=== PATIENT | female | born 1950 | race Caucasian/White ===

== ENCOUNTER → 2020-09-19 11:14 | Outpatient (CLI) | payer OTHER, SELFPAY ==
[2020-09-19 11:28] LABS: Bacteria Urine None Seen; RBC Urine None Seen (0-5/HPF); WBC Urine None Seen (0-5/HPF)
[2020-09-19 12:56] LABS: Add Manual Diff / Slide Review NO; Basophils Absolute Auto 0 /uL (0-100); Basophils Percent Auto 0.8 % (0-2); Eosinophils Absolute Auto 100 /uL (0-450); Eosinophils Percent Auto 2.3 % (2-4); Hematocrit 38.4 % (36-46); Hemoglobin 13.1 g/dL (12.0-16.0); Lymphocytes Absolute Auto 2100 /uL (1100-4500); Mean Corpuscular HGB Conc 34.1 % (30-36); Mean Corpuscular Hemoglobin 32.6 PG (26-34); Mean Corpuscular Volume 95.6 fL (80-100); Monocytes Absolute Auto 500 /uL (0-900); Monocytes Percent Auto 9.2 % (3-14); Neutrophils Absolute Auto 2800 /uL (1500-7000); Neutrophils Percent Auto 49.7 % (50-75); Platelet Count 271 X10^3/uL (150-400); Red Blood Cell Count 4.02 X10^6/uL (4.0-5.2); Red Cell Distribution Width 13.6 % (11.6-14.8); White Blood Cell Count 5.6 X10^3/uL (4.5-11.0)
[2020-09-19 13:05] LABS: Appearance Urine UA CLEAR; Bilirubin Urine UA NEGATIVE (NEGATIVE); Color Urine UA YELLOW; Glucose Urine UA NEGATIVE (Negative); Ketones Urine UA NEGATIVE (NEGATIVE); Leukocyte Esterase Urine UA NEGATIVE (NEGATIVE); Nitrite Urine UA NEGATIVE (Negative); Occult Blood Urine UA NEGATIVE (Negative); Protein Urine UA NEGATIVE (Negative); Urobilinogen Urine UA 0.2 E.U./dL (0.2)
[2020-09-19 13:34] LABS: Blood Urea Nitrogen 20 mg/dL (7-17); Calcium 10.3 mg/dL (8.4-10.2); Carbon Dioxide 26 mmol/L (22-32); Chloride 104 mmol/L (98-107); Estimated Glomerular Filt Rate 48.6 mL/min (>60); Glucose 91 mg/dL (80-110); HEMOLYSIS < 15 (0-50); Potassium 4.6 mmol/L (3.4-5.1); Sodium 139 mmol/L (137-145)
[2020-09-19 13:44] LABS: Culture Indicated Urine Cult Not Indicated; Urine Comments Microscopic Normal
== END ==
PROVIDERS: Family Provider Internal Medicine; PCP Internal Medicine; Referring Provider Orthopaedic Surgery; Visit Provider Orthopaedic Surgery
DX: Z01.818 Encounter for other preprocedural examination (principal); R73.9 Hyperglycemia, unspecified; Z01.812 Encounter for preprocedural laboratory examination; N39.0 Urinary tract infection, site not specified
CPT/HCPCS: 36415; 80048; 81001; 83036; 85025; 93005

== ENCOUNTER → 2020-10-10 11:21 | Outpatient (CLI) | payer OTHER, SELFPAY ==
[2020-10-10 14:22] LABS: COVID19 -Nasal RAPID Negative (Negative)
== END ==
PROVIDERS: Family Provider Internal Medicine; PCP Internal Medicine; Visit Provider Nurse Practitioner
DX: Z01.812 Encounter for preprocedural laboratory examination (principal); Z20.822 Contact with and (suspected) exposure to COVID-19
CPT/HCPCS: 87635; C9803

== ENCOUNTER 2020-10-12 09:24 | Observation (INO) | payer OTHER, SELFPAY ==
[2020-10-04 09:36] VITALS: BMI 25.0
[2020-10-11] VITALS (13 sets, daily range): BP systolic 113–154; BP diastolic 59–79; PULSE 62–99; RESP 14–20; TEMP 35.5–36.8; O2SAT 93–99; BMI 25.0
[2020-10-11] MEDS: LACTATED RINGERS 1,000 ML 42 ML IV ×2 (06:51→09:07)
[2020-10-11] MEDS: ACETAMINOPHEN 325 MG TABLET 975 MG PO (06:51)
[2020-10-11] MEDS: PREGABALIN 75 MG CAPSULE PO ×2 (06:51→07:06)
[2020-10-11] MEDS: VANCOMYCIN 1,000 MG/200 ML PIGGYBACK 200 MG IV (06:52)
--- NOTE | 2020-10-11 07:35 | PM.PREOP ---
Pre-operative Note COVID-19 COVID-19 status: Negative Interval Note History & Physical reviewed/Exam performed by Physician: Yes Changes to H&P: No
--- NOTE | 2020-10-11 07:36 | P.OP_ITS ---
Operative Date/Time/Diagnoses Date of procedure: 10/11/20 Time of procedure: 08:00 Pre-op diagnosis: Left hip OA Post-op diagnosis: same Procedure & Clinicians Procedure: Left total hip arthroplasty anterior approach Same procedure as scheduled: Yes Indications: The patient has had progressively worsening left hip pain with radiographic changes consistent with arthritis. Non-operative management has failed and the patient has requested total hip replacement. The risks, benefits and alternatives to surgery were discussed with the patient prior to proceeding. Risks discussed included, but were not limited to, failure to relieve pain, leg length discrepancy, dislocation, stiffness, infection, nerve damage, deep venous thrombosis, pulmonary embolism, stroke, coma, heart attack, permanent paralysis and , as well as the potential need for eventual revision of the prosthetic. Surgeon: Kenya Zhu Application Assistant: Aleida Michael Anesthesia Type: General and Spinal Operative Notes Findings: severe left hip osteoarthritis, good stability Closure Type: primary Specimen(s): none sent Prosthetic devices, grafts, tissues, transplants, or devices: [employer] anthology A fit size 4 femur, 52 mm cup, 36 +0 Oxinium femoral head,one 6.5 mm screw Estimated Blood Loss (mL): 250 Blood products transfused: none Procedure in detail: The patient was brought to the operating room. Patient was carefully positioned in the supine position. Time-out was performed and antibiotics were given. Anesthesia was induced. She was positioned in the on the table in order to allow hyperextension of the hip. The left lower extremity was prepped and draped in a standard sterile fashion. An anterior left hip incision was made 1 fingerbreadth lateral to the anterior superior iliac spine and extended distally towards the greater trochanter. Dissection was carried out through skin and subcutaneous tissues. Superficial hemostasis was achieved. The fascia over the tensor fascia beatriz was defined and incised with a knife. Two Allis clamps were used to grasp the fascia. Tensor fascia beatriz was retracted laterally. A gelpi retractor was placed. Dissection was carried out down along the neck. The circumflex vessels were carefully identified and cauterized with the Aqua Mantis. There was good visualization of the femoral neck. A Cobra was placed superior to the neck and the gluteus fibers were carefully stripped from that superior aspect of the capsule. A 2nd retractor was placed along the inferior aspect of the neck. The rectus insertion along the capsule was partially released. A 3rd retractor that was then gently placed over the rim of the acetabulum under the rectus. Capsule was carefully incised and released from the intertrochanteric line circumferentially superior to the mid sagittal line and inferiorly to the mid sagittal line until the lesser trochanter was palpable. A tag stitch was placed both in the superior and inferior limb of the capsular insertion. Along the acetabulum capsule was also released up to the mid sagittal 12:00 position. A portion of the labrum was resected. A saw was used to perform an osteotomy at the level of the intertrochanteric line and the junction of the superior femoral neck leaving approximately 1 finger breath of residual inferior neck above the lesser trochanter. A 2nd cut was made along the femoral neck at the base of the head and a napkin ring of neck was removed. Corkscrew was placed in the femoral head and the head was removed without difficulty. Retractors were then repositioned around the acetabulum. Residual labrum was resected and additional osteophytes were removed. A reamer that was 4 mm below the templated size was placed by hand in the acetabulum and it was reamed to centralize the acetabulum. It was then reamed up to 2 under the templated size and fluoroscopy was brought in to confirm the position of the reaming and depth of reaming. I reamed 1 under the anticipated size. A trial cup was placed and noted that it was appropriately sized and fluoroscopy confirmed position and depth. The component was open and inserted without difficulty fluoroscopic imaging was used to confirm that the cup had been adequately seated and was well positioned. Neutral poly liner was placed. It was further stabilized with a single screw. The cup was tested and noted to be stable. Attention was then directed to the femur. The femur was gently hyperextended additional capsular release was performed as needed in order to allow adequate visualization of the proximal femur with elevation of the femur. Patient was placed in a hyperextended slightly adducted position with maximum external rotation. Box osteotome was used to check for any residual neck as well as sclerotic bone along the trochanter. Jewell pepper was placed in the femur. Additional broaching was performed. Canal finder was used to determine the alignment of the canal and position. Size 1 broach was placed. The canal was then appropriately broached up to the templated size as long as there was adequate stability of the broach and serial advancement of the broach without excessive impingement. Specific attention was directed at avoiding varus atte mpting to direct the distal aspect of the broach more anteriorly and avoiding excessive anteversion. Trial reduction showed acceptable range of motion, good stability, no posterior impingement, alevism of leg length and appropriate lateral shuck. I also hyperflexed the hip and checked that there was no impingement anteriorly and there was good stability with flexion, adduction and internal rotation. Marcaine and Exparel were injected. The stem was placed without difficulty. Repeat trial reduction and x-ray showed acceptable overall position, length, and no evidence of the femoral fracture. Final head was placed. Wound was meticulously irrigated with normal saline. The hip was reduced and additional Exparel and Marcaine were injected. The capsule was closed with interrupted nonabsorbable sutures. The fascia of the tensor was closed with interrupted and running Vicryl. No drain was placed. Any tensor fascia beatriz muscle that appeared to be contused or injured which was a minimal amount was carefully resected. Capsule around the tensor was injected with Exparel and Marcaine. The skin was closed with barbed stitches for the subcutaneous tissue and skin. We also used surgical glue. The wound was dressed sterilely. Brief Betadine soak was also used and was meticulously irrigated with normal saline. Patient was transferred to recovery room in satisfactory condition. Complications: none Post-operative Condition: stable Disposition: Acute Care Plan for aftercare: The patient will be maintained on a standard total hip replacement protocol with weight bearing as tolerated and anterior hip precautions. The patient will receive Aspirin and sequential compression devices for DVT prophylaxis. The patient will be discharged home when safe for the home environment.
[2020-10-11] MEDS: CEFAZOLIN 1 GM VIAL 2 GM IV ×2 (08:07→17:10)
[2020-10-11] MEDS: TRANEXAMIC ACID 1,000 MG VIAL 2000 MG INJ ×2 (08:07→10:19)
--- NOTE | 2020-10-11 08:35 | SUR.OPER ---
Patient supine on padded [place] table, one arm on padded arm board at <90, other arm padded and secured with tape across patient's chest, both legs secured in padded traction boots and positioned per surgeon, padded post at patient's groin, pressure points checked and padded.
[2020-10-11] MEDS: BUPIVACAINE 0.25% (PF) VIAL 30 ML INJ (08:39)
[2020-10-11] MEDS: BUPIVACAINE LIPOSOME 266 MG/20 ML VIAL INJ (08:40)
[2020-10-11] MEDS: SODIUM CHLORIDE IRRIG SOLUTION 250 ML, POVIDONE-IODINE SPONGE STICKS 1 APPLIC IRR (08:42)
--- NOTE | 2020-10-11 10:00 | DI.RAD.S_ITS ---
PROCEDURE: XR HIP W PEL IF DONE LT 2V INDICATIONS: LEFT ANT HIP TECHNIQUE: 2 view(s) of the hip acquired. COMPARISON: None. FINDINGS: Bones: Patient is status post left hip arthroplasty, with hardware components in expected positions. The hip joint appears congruent. The visualized bony structures appear intact. Soft tissues: Overlying postoperative changes are noted. No suspicious soft tissue densities. IMPRESSION: Normal alignment after left total hip arthroplasty. Dictated by: Cachorro Samaniego M.D. on 10/11/2020 at 15:23 Approved by: Cachorro Samaniego M.D. on 10/11/2020 at 15:24
--- NOTE | 2020-10-11 11:22 | SUR.PHASEI ---
Stable PACU stay, pt arrived awake, no pain, no nausea. Report called to SUSHILA Fong
--- NOTE | 2020-10-11 11:30 | DI.RAD.S_ITS ---
PROCEDURE: XR HIP W PEL IF DONE LT 2V INDICATIONS: POST OP LEFT TOTAL HIP TECHNIQUE: 2 view(s) of the hip acquired. COMPARISON: None. FINDINGS: Bones: Patient is status post left hip arthroplasty, with hardware components in expected positions. The hip joint appears congruent. The visualized bony structures appear intact. Soft tissues: Overlying postoperative changes are noted. No suspicious soft tissue densities. IMPRESSION: Normal alignment after left total hip arthroplasty. Dictated by: Cachorro Samaniego M.D. on 10/11/2020 at 12:00 Approved by: Cachorro Samaniego M.D. on 10/11/2020 at 12:00
--- NOTE | 2020-10-11 11:42 | SUR.PHASEI ---
Pt transported up to room, left with SUSHILA Wells and left in stable condition, bed down, locked, SCD's on and callight in hand, pt instructed not to get up w/o assist of staff, pt voiced an understanding.
--- NOTE | 2020-10-11 12:12 | PC.NURSE ---
Pt to room 203 via bed from PACU. Pt is awake and oriented x 3. Pt denies pain, nausea, or shortness of breath. O2 sat 96%on RA. SCD's on and running. IVF infusing as ordered. Pt oriented to room, call light, bed controls, and tv controls. Reminded Pt to call for assistance as needed and to not get up without assistance. Bed alarm on for safety.
[2020-10-11] MEDS: LACTATED RINGERS 1,000 ML 125 ML IV (12:27)
--- NOTE | 2020-10-11 12:53 | PC.NURSE ---
Pt denies pain; c/m/s to LLE positive; PPP; ls clear, O2 RA=94%; tolerated lunch 75%; IV fluids infusing; pt education included cough/deep breath, anticoagulants, and ankle waves; pt oriented to room and call light
--- NOTE | 2020-10-11 14:48 | PT.IIE ---
Current Diagnoses Unilateral primary osteoarthritis, left hip (10/11/20) Surgery Performed Operation Date: 10/11/20 07:45 Actual Procedures p Total Hip Arthroplasty/Anterior Approach(Left) - Kenya Zhu MD Medical History (Last Updated 10/04/20 @ 10:16 by Olesya Reddy, RN) Anemia Anxiety Arthritis Watters's esophagus Benign tumor of lung Bilateral cataracts Depression DJD (degenerative joint disease) Hepatitis C HTN (hypertension) Hypothyroid Osteopenia Pre-diabetes Precancerous skin lesion Scoliosis Spondyloarthropathy Thyroid disease Physical Therapy Inpatient Evaluation/Re-Eval M1 PT/OT-IP Prior Functional Status Start: 10/11/20 16:25 Freq: NEEDED Status: Active Protocol: Document 10/11/20 14:58 AB (Rec: 10/11/20 16:39 AB [id number]) Medical Review Prior Functional Status Medical History Reviewed Yes Communication able to make needs known Mobility and Gait pt stated that she is independent with all mobilities and ambulation without AD Social History Household Members spouse Living Arrangements House Number of Floors (Floors) Two Floors Number of Stairs To Enter/Railing? will stay on main level of the house 3 stteps to enter without rails Home Environment Standard Height Toilet,Tub/ Shower Home Equipment Front Wheel Walker,Raised Toilet Seat Without Armrests, Shower Seat with Backrest Additional Social History Comment pt stated that the shower is in the 2nd level of the house: 13 steps R rail ascending: pt plans to stay on first level of the house and will just do sponge bathing M2 PT-IP Current Condition Start: 10/11/20 16:25 Freq: NEEDED Status: Active Protocol: Document 10/11/20 14:58 AB (Rec: 10/11/20 16:39 AB [id number]) Physical Therapy Current Condition Current Condition Evaluation Date 10/11/20 Treatment Diagnosis s/p L Ollie anterior approach; difficulty in walking Onset Date 10/11/20 Precautions Anterior Hip Precautions No Hip Extension,No Hip External Rotation Weight Bearing Status Weight Bearing Status Weight Bear as Tolerated Allowed Weight Bearing Amount (enter % LLE WBAT or #) (%) M3 PT-IP Subjective Start: 10/11/20 16:25 Freq: NEEDED Status: Active Protocol: Document 10/11/20 14:58 AB (Rec: 10/11/20 16:39 AB [id number]) Subjective Physical Therapy Visit Type Type Initial Evaluation Visit Start Time 14:58 Visit Stop Time 15:46 Total Visit Minutes 48 Physical Therapy Visit Comments Patient Comments agreeable to do PT; want to use the toilet Therapy Pain Assessment Pain When Pain Assessed At Rest Pain Present Pain Present Pain Reported Location Left Hip Intensity 5 Scale Used Numeric (0 - 10) Pain Management Techniques Apply Cold,Distraction, Modification of Treatment,Re- positioning,Timing of Activity with Medications M4 PT-IP Mobility and Gait Start: 10/11/20 16:25 Freq: NEEDED Status: Active Protocol: Document 10/11/20 14:58 AB (Rec: 10/11/20 16:39 [id number]) PT-Bed Mobility Assessment Supine to Sit Supine to Sit Minimal Assistance PT-Transfer Assessment Sit to and From Stand Sit to and from Stand Minimal Assistance,1 Person Assistance,Use of Upper Extremities Equipment Transfer Assistive Device Gait Belt,Front Wheeled Walker Orthotic/Prosthetic Devices or Brace: No Transfers Transfer Destination Bedside Commode Transfer Technique Stand Step Pivot Transfer Ability Level of Assist Minimal Assistance,1 Person Assistance,Use of Upper Extremities Comments Mobility Comments educated pt on hip precautions . pt easily gets anxious affecting safety awareness and can be impulsive. completed supine to sit min A and cues. pt was able to sit on EOB SBA . no c/o dizziness. BP: 148/ 86. requested to use the toilet. bedside commode positioned next to pt. pt completed sit to stand min A and cues and completed step transfer using FWW to bedside commode min A. completed sit to stand from the bedside commode min A and cues. ambulated using FWW min A and cues to adhere to hip precautions. ambulated ~ 30 ft using FWW min A and cues. pt agreed to sit up on the chair . positioned on the chair. call light and table placed within reach. pt has a FWW but has rubber back legs and informed pt regarding safety and to get skids/tennis balls for the back legs of FWW for safety. pt stated that she will let her know. pt also plans to get a SPC to use for stair climbing. caregiver training set up for 10 am tomorrow. Gait Assessment Gait Gait Assistance Required: Minimum Assistance Distance (Feet) 30 Able to Maintain Weight Bearing Status Yes During Gait Assistive Devices Assistive Device Gait Belt,Front Wheeled Walker Orthotic/Prosthetic Devices or Brace: No Gait Deviations General Gait Pattern Antalgic,Decreased Stride Length,Decreased Feet Clearance Factors Limiting Gait Function Factors Limiting Gait Function Decreased Activity Tolerance, Decreased Strength,Difficulty Following Directions,Pain,Poor Balance,Poor Safety Awareness PT-Balance Assessment Sitting Balance and Reactions Static Sitting Balance Ability Good Dynamic Sitting Balance Ability Good Standing Balance and Reactions Static Standing Balance Ability Fair Dynamic Standing Balance Ability Fair Device Used FWW M5 PT-IP Objective Assessments Start: 10/11/20 16:25 Freq: NEEDED Status: Active Protocol: Document 10/11/20 14:58 AB (Rec: 10/11/20 16:39 AB [id number]) Orientation Orientation/Cognition Level of Alertness Alert Orientation Name Safety Awareness Decreased Safety Awareness Memory Description Short Term Impaired Gross Range of Motion Lower Extremity ROM Assessment Within Functional Limits Strength Lower Extremity Strength Assessment Left Impaired Hip 3+/5 Knee 4-/5 Coordination Assessment Gross Coordination Gross Coordination WNL Sensation Assessment Sensation Sensation Description Numbness Comments Sensation Comments anterior L thight slight numbness per pt Muscle Tone Muscle Tone WNL Yes M6 PT-IP Treatment Start: 10/11/20 16:25 Freq: NEEDED Status: Active Protocol: Document 10/11/20 14:58 AB (Rec: 10/11/20 16:39 AB [email or web address]) Physical Therapy Treatment Education Education Provided Precautions,Weight Bearing Status,Post-Op Packet,Safety M7 PT-IP Assessment and Plan Start: 10/11/20 16:25 Freq: NEEDED Status: Active Protocol: Document 10/11/20 14:58 AB (Rec: 10/11/20 16:39 AB [email or web address]) PT Summary Assessment and Plan Potential Rehabilitation Potential Good Status of Condition at Evaluation Stable Summary Impairments Pain,ROM,Strength,Balance, Coordination,Sensation, Cognition,Bed Mobility, Transfers,Gait,Activity Tolerance Assessment Summary pt requiring min A with mobility using FWW. caregiver training set up for tomorrow at 10 am. stair climbing training needs to be completed prior to d/c. will continue to assess progress. Goals Bed Mobility Goal Independent Transfer Goal Independent,Front Wheeled Walker Gait Goal Independent,Front Wheel Walker Gait Distance 200 Other Goals up/down 3 steps SPC/STORE CASHIER CGA up/down 13 steps R rail ascending SBA Days to Meet Goals 5 Frequency of Treatment Frequency Of Treatment Twice a Day Treatment Plan Physical Therapy Treatment Plan Bed Mobility Training,Transfer Training,Gait Training, Therapeutic Exercise,Balance Retraining,Post Op Education, Discharge Planning,Hot or Cold Pack,Neuromuscular Re-ed, Coordination Retraining,Manual Therapy Other Recommendations and Next Treatment Caregiver trainin10/12/20 Focus at 10 am Precautions Anterior Hip Precautions No Hip Extension,No Hip External Rotation Other Precautions LLE WBAT Recommendations To Nursing Amount of Assist Needed 1 Person Assist Discharge Recommendations PT Discharge Recommendations Home with Assistance, Outpatient PT Transportation Needs at Discharge Private Vehicle
[2020-10-11] MEDS: ACETAMINOPHEN 325 MG TABLET 650 MG PO ×2 (15:08→20:37)
[2020-10-11] MEDS: OXYCODONE IR 5 MG TABLET PO ×3 (15:08→20:41)
[2020-10-11] MEDS: lisinopriL 10 MG TABLET 30 MG PO (20:38)
[2020-10-11] MEDS: DOCUSATE 100 MG CAPSULE PO (20:38)
[2020-10-11] MEDS: METFORMIN HCL 500 MG TABLET PO (20:38)
[2020-10-11] MEDS: ASPIRIN EC 81 MG TABLET PO (20:38)
[2020-10-11] MEDS: FAMOTIDINE 20 MG TABLET 40 MG PO (20:38)
[2020-10-12] MEDS: CEFAZOLIN 1 GM VIAL 2 GM IV (00:19)
[2020-10-12] MEDS: OXYCODONE IR 5 MG TABLET PO ×3 (00:20→08:56)
[2020-10-12 00:28] VITALS: BP 142/74; PULSE 82; RESP 16; TEMP 36.1; O2SAT 98
[2020-10-12 03:24] VITALS: BP 102/71; PULSE 70; RESP 16; TEMP 36.6; O2SAT 96
[2020-10-12 07:39] LABS: Hematocrit 28.8 % (36-46)
--- NOTE | 2020-10-12 07:40 | PM.DS.1 ---
History of Present Illness History of Present Illness Date Patient Seen: 10/12/20 Time Patient Seen: 07:40 Chief complaint: Left hip osteoarthritis Narrative: Patient is complaining of mild left hip pain this morning, which is well controlled with current pain regimen. She denies any fevers, chills, night sweats. She denies any numbness or tingling in bilateral lower extremities. She is working with physical therapy. Overall she is feeling well and would like to go home today. Discharge Providers Provider Discharge Date: 10/12/20 Primary care physician: Dory Cho MD Consults: 10/09/20 10:51 Consult to Anesthesiology Routine Comment: Consulting Provider: Anesthesiologist Reason for consultation: Regional block for post operative pain control 10/11/20 11:47 Consult to Discharge Planning Routine Comment: Consult to Physical Therapy Evaluate & Treat Comment: Physician Instructions: post op MEGAN protocol Consult to Respiratory Therapy Evaluate & Treat Comment: Physician Instructions: Evaluate and treat Discharge provider: Aleida Michael PA-C Summary Hospital Course Discharge Diagnosis: Left hip osteoarthritis Hospital Course: Procedure: Left total hip arthroplasty anterior approach Same procedure as scheduled: Yes Indications:? The patient has had progressively worsening left hip pain with radiographic changes consistent with arthritis. Non-operative management has failed and the patient has requested total hip replacement. The risks, benefits and alternatives to surgery were discussed with the patient prior to proceeding. Risks discussed included, but were not limited to, failure to relieve pain, leg length discrepancy, dislocation, stiffness, infection, nerve damage, deep venous thrombosis, pulmonary embolism, stroke, coma, heart attack, permanent paralysis and , as well as the potential need for eventual revision of the prosthetic. Surgeon: Kenya Zhu Residential Driver: Aleida Michael Anesthesia Type: General and Spinal Operative Notes Findings:? severe left hip osteoarthritis, good stability Closure Type: primary Specimen(s): none sent Prosthetic devices, grafts, tissues, transplants, or devices:? [employer]ology A fit size 4 femur, 52 mm cup, 36 +0 Oxinium femoral head,one 6.5 mm screw Estimated Blood Loss (mL): 250 Blood products transfused: none Status at Discharge Cognitive/behavioral status at discharge: oriented Functional status at discharge: uses cane/walker Overall status at discharge: patient is progressing back to baseline Exam Vital Signs (past 8 hours): - 10/12/20 00:28 10/12/20 03:24 Temperature 97.0 F L 97.9 F Pulse Rate 82 70 Respiratory Rate 16 16 Blood Pressure 142/74 H 102/71 Pulse Oximetry 98 96 Oxygen Delivery Method Room Air Oxygen Flow Rate 0 Narrative Exam Narrative: Pleasant 70-year-old female, resting comfortably in bed, no acute distress. Incision is clean, dry, intact. Bilateral lower extremities with normal motor functions. Sensation is grossly intact to light touch in bilateral lower extremities. Both legs are warm and dry. Bilateral calves are soft, nontender to palpation Objective Labs Result Diagrams: 10/12/20 06:58 Labs: Laboratory Results - last 24 hr 10/12/20 06:58 Hgb 10.0 L Hct 28.8 L PFSH Medical History Anemia Anxiety Arthritis Watters's esophagus Benign tumor of lung Bilateral cataracts Depression DJD (degenerative joint disease) Hepatitis C HTN (hypertension) Hypothyroid Osteopenia Pre-diabetes Precancerous skin lesion Scoliosis Spondyloarthropathy Thyroid disease Surgical History History of hysterectomy History of lung surgery (~2004) History of open reduction and internal fixation (ORIF) procedure History of reverse total replacement of left shoulder joint (2018) Hx of laminectomy (~1997) Hx of shoulder surgery (2019) Hx of tonsillectomy S/P epidural steroid injection S/P CAMILLE-BSO Social History household members: spouse Smoking Status: Former smoker alcohol intake: current Discharge Assessment & Plan Assessment and Plan Assessment: Stable status post left total hip arthroplasty, anterior approach Plan of Treatment: Discharge home today after physical therapy Weightbearing as tolerated Aspirin 81 b.i.d. x6 weeks plus Pepcid AC Tylenol on Oxy for pain control Discharge Plan Discharge Plan Patient Disposition: Home Discharge orders & Medications Discharge Orders: Discharge (Order); Ordered 10/12/20 Ordered By: Aleida Michael Prescriptions: New acetaminophen 500 mg capsule 500 mg PO Q4H PRN (Reason: pain) Qty: 90 RF: 0 aspirin 81 mg Tablet,Delayed Release (Dr/Ec) 81 mg PO BID PRN (Reason: Prevent blood clots x6 weeks) Qty: 90 RF: 0 famotidine [Pepcid AC] 20 mg Tablet 20 mg PO BID PRN (Reason: To protect stomach while on aspirin) Qty: 90 RF: 0 docusate sodium [DOK] 100 mg Capsule 100 mg PO BID PRN (Reason: For constipation associated with narcotic pain med) Qty: 30 RF: 0 oxycodone 5 mg Tablet 5 mg PO Q3HR PRN (Reason: Pain, Moderate (4-6)) Qty: 42 RF: 0 Continued cyanocobalamin (vitamin B-12) [Vitamin B-12] 1,000 mcg Tablet 1,000 mcg PO DAILY RF: 0 cimetidine 800 mg Tablet 800 mg PO BID RF: 0 levothyroxine 50 mcg Tablet 50 mcg PO DAILY RF: 0 buspirone 30 mg Tablet 30 mg PO QAM RF: 0 cholecalciferol (vitamin D3) [Vitamin D3] 25 mcg (1,000 unit) Capsule 25 mcg PO DAILY RF: 0 multivitamin with iron Tablet 1 tab PO DAILY RF: 0 escitalopram oxalate [Lexapro] 20 mg Tablet 20 mg PO DAILY RF: 0 metformin 500 mg Tablet 500 mg PO BEDTIME RF: 0 lisinopril 30 mg Tablet 30 mg PO BEDTIME RF: 0 vitamins A,C,F-[id number] Capsule 1 cap PO BEDTIME RF: 0 Follow up/Referrals: Dory Cho MD [Primary Care Provider] - Kenya Zhu MD [Physician] - (10-14 days for postoperative visit) Diet/Activity/Treatments Diet: Diet as Tolerated and Regular Activity: Weight-bearing as tolerated with front wheeled walker Maintain anterior hip precautions x6 weeks Cold/Heat Therapy: Use ice as needed for pain Other treatments: Aspirin 81 mg twice daily x6 weeks plus Pepcid AC to protect stomach wall using aspirin Skin/Wound/Dressing Care Report to your healthcare provider any signs of infection, such as:: chills, fever, night sweats, unusual drainage and unusual redness Dressing: Okay to shower after 48 hours, please call the office if dressing becomes wet, soiled, saturated. Visit Report/Discharge Packet Instructions: DI for Hip Replacement Stand Alone Forms: Surgery Discharge Discharge Data Primary Care Provider: Dannhaur,Dory C Attending Provider: Kenya Zhu VTE Deep Vein Thrombosis/Pulmonary Embolism Present on Admission: No
[2020-10-12 08:29] VITALS: BP 112/57; PULSE 81; RESP 16; TEMP 36.4; O2SAT 95
[2020-10-12] MEDS: BUSPIRONE 5 MG TABLET 30 MG PO (08:56)
[2020-10-12] MEDS: ASPIRIN EC 81 MG TABLET PO (08:56)
[2020-10-12] MEDS: CYANOCOBALAMIN (VITAMIN B-12) 500 MCG TABLET 1000 MCG PO (08:56)
[2020-10-12] MEDS: DOCUSATE 100 MG CAPSULE PO (08:57)
[2020-10-12] MEDS: CHOLECALCIFEROL (VITAMIN D3) 1,000 UNIT TABLET 1000 UNIT PO (08:57)
[2020-10-12] MEDS: ESCITALOPRAM 10 MG TABLET 20 MG PO (08:57)
[2020-10-12] MEDS: ACETAMINOPHEN 325 MG TABLET 650 MG PO (08:57)
[2020-10-12] MEDS: LEVOTHYROXINE 50 MCG TABLET PO (08:57)
[2020-10-12] MEDS: MULTIVITAMIN 1 TABLET 1 TAB PO (08:57)
[2020-10-12] MEDS: FAMOTIDINE 20 MG TABLET 40 MG PO (08:58)
--- NOTE | 2020-10-12 10:51 | PC.NURSE ---
Patients anterior hip dressing is cdi, zana wnl and patient has feeling to her leg. She is up with a one person assist and walker and tolerating well. Physical therapy in room now working with patient. CMS wnl and ppx2. Patient will be going home today. Getting prescriptions filled at [facility].
--- NOTE | 2020-10-12 11:20 | PT.IPTN ---
Current Diagnoses Unilateral primary osteoarthritis, left hip (10/12/20) Surgery Performed Operation Date: 10/11/20 07:45 Actual Procedures p Total Hip Arthroplasty/Anterior Approach(Left) - Kenya Zhu MD Physical Therapy Treatment Note M2 PT-IP Current Condition Start: 10/11/20 16:25 Freq: NEEDED Status: Active Protocol: Document 10/11/20 14:58 AB (Rec: 10/11/20 16:39 AB [id number]) Physical Therapy Current Condition Current Condition Evaluation Date 10/11/20 Treatment Diagnosis s/p L Ollie anterior approach; difficulty in walking Onset Date 10/11/20 Precautions Anterior Hip Precautions No Hip Extension,No Hip External Rotation Weight Bearing Status Weight Bearing Status Weight Bear as Tolerated Allowed Weight Bearing Amount (enter % LLE WBAT or #) (%) M3 PT-IP Subjective Start: 10/11/20 16:25 Freq: NEEDED Status: Active Protocol: Document 10/12/20 10:56 CLB (Rec: 10/12/20 13:00 CLB [id number]) Subjective Physical Therapy Visit Type Type Treatment Note Visit Start Time 10:56 Visit Stop Time 11:20 Total Visit Minutes 24 Notes present for CG training. Number of IRRIGATION INSTALLATION SPECIALIST Visits 1 Physical Therapy Visit Comments Patient Comments agreeable to do therapy Therapy Pain Assessment Pain When Pain Assessed At Rest Pain Present Pain Present Pain Reported Location Left Hip Intensity 3 Scale Used Numeric (0 - 10) M4 PT-IP Mobility and Gait Start: 10/11/20 16:25 Freq: NEEDED Status: Active Protocol: Document 10/12/20 10:56 CLB (Rec: 10/12/20 13:00 CLB [id number]) PT-Bed Mobility Assessment Supine to Sit Supine to Sit Standby Assistance,1 Person Assistance PT-Transfer Assessment Sit to and From Stand Sit to and from Stand Contact Guard Assistance,1 Person Assistance,Use of Upper Extremities Equipment Transfer Assistive Device Gait Belt,Front Wheeled Walker Orthotic/Prosthetic Devices or Brace: No Transfers Transfer Destination Chair Transfer Technique Stand Step Pivot Transfer Ability Level of Assist Contact Guard Assistance,1 Person Assistance,Use of Upper Extremities Comments Mobility Comments Pt recalled 2/2 hip precautions. Pt able to get to EOB SBA, pt stood CGA and ambulated in moses with CGA then SBA with cues not to push walker to far forward during gait. Pt climbed three steps with [employer] provided by . Pt then ambulated back to room SBA and sitting in chair SBA. Pt left in chair with all needs within reach. RN notified of pt progress and husbands ability to assist pt at home. Gait Assessment Gait Gait Assistance Required: Standby Assistance,Contact Guard Assist,1 Person Assist Distance (Feet) 140 Able to Maintain Weight Bearing Status Yes During Gait Assistive Devices Assistive Device Gait Belt,Front Wheeled Walker Orthotic/Prosthetic Devices or Brace: No Gait Deviations General Gait Pattern Antalgic,Decreased Stride Length,Decreased Feet Clearance Factors Limiting Gait Function Factors Limiting Gait Function Decreased Activity Tolerance, Decreased Strength,Difficulty Following Directions,Pain,Poor Balance,Poor Safety Awareness Comments Gait Comments Pt requiring CGA then SBA for gait with cues for walker use and step to gait pattern. Stair Climbing Assessment Evaluation Level of Assist On Stairs Contact Guard Assistance,1 Person Assistance Devices Stair Climbing Assistive Devices Straight Cane Technique/Endurance Stair Climbing Direction Ascend and Descend Stair Climbing Technique Step to Step Number of Steps Climbed 3 Stair Climbing Set # Repetitions (reps) 1 Comments Stair Climbing Comments see mobility comments Pt states she will be remaining on main level of home and sleeping in her recliner. M5 PT-IP Objective Assessments Start: 10/11/20 16:25 Freq: NEEDED Status: Active Protocol: Document 10/11/20 14:58 AB (Rec: 10/11/20 16:39 AB [email or web address]) Orientation Orientation/Cognition Level of Alertness Alert Orientation Name Safety Awareness Decreased Safety Awareness Memory Description Short Term Impaired Gross Range of Motion Lower Extremity ROM Assessment Within Functional Limits Strength Lower Extremity Strength Assessment Left Impaired Hip 3+/5 Knee 4-/5 Coordination Assessment Gross Coordination Gross Coordination WNL Sensation Assessment Sensation Sensation Description Numbness Comments Sensation Comments anterior L thight slight numbness per pt Muscle Tone Muscle Tone WNL Yes M6 PT-IP Treatment Start: 10/11/20 16:25 Freq: NEEDED Status: Active Protocol: Document 10/11/20 14:58 AB (Rec: 10/11/20 16:39 AB [email or web address]) Physical Therapy Treatment Education Education Provided Precautions,Weight Bearing Status,Post-Op Packet,Safety M7 PT-IP Assessment and Plan Start: 10/11/20 16:25 Freq: NEEDED Status: Active Protocol: Document 10/12/20 10:56 CLB (Rec: 10/12/20 13:00 CLB [id number]) PT Summary Assessment and Plan Potential Rehabilitation Potential Good Status of Condition at Evaluation Stable Summary Impairments Pain,ROM,Strength,Balance, Coordination,Sensation, Cognition,Bed Mobility, Transfers,Gait,Activity Tolerance Progress Towards Goals Progressing Toward Goals Assessment Summary Pt requiring SBA for bed mobility, CGA for sit-stand and SBA for gait. Pt able to increase gait distance to ~ 140ft w/FWW/SBA. Pt seems able to d/c home with to assist pt at home. Goals Bed Mobility Goal Independent Transfer Goal Independent,Front Wheeled Walker Gait Goal Independent,Front Wheel Walker Gait Distance 200 Other Goals up/down 3 steps S[employer] CGA up/down 13 steps R rail ascending SBA Days to Meet Goals 5 Frequency of Treatment Frequency Of Treatment Twice a Day Treatment Plan Physical Therapy Treatment Plan Bed Mobility Training,Transfer Training,Gait Training, Therapeutic Exercise,Balance Retraining,Post Op Education, Discharge Planning,Hot or Cold Pack,Neuromuscular Re-ed, Coordination Retraining,Manual Therapy Precautions Anterior Hip Precautions No Hip Extension,No Hip External Rotation Other Precautions LLE WBAT Recommendations To Nursing Amount of Assist Needed 1 Person Assist Discharge Recommendations PT Discharge Recommendations Home with Assistance, Outpatient PT Transportation Needs at Discharge Private Vehicle
[2020-10-12 12:48] VITALS: BP 128/70; PULSE 77; RESP 17; TEMP 36.3; O2SAT 96
--- NOTE | 2020-10-12 15:28 | CM.IDA ---
Initial DCP Assessment Note Pt is a 70 yo female, resident of [place], now POD#1 from left hip surgery by Dr Zhu PCP: Dory Cho Payer: Kolby ALVAREZ Reviewed chart, pt discussed in multidisciplinary rounds this morning. Therapy has cleared pt for return home w/spouse to assist and pt has planned for home, DC order from Ortho has already been initiated this morning. No needs expected from DC planning team although will remain available in case this changes today. CINDI Cantu
== END 2020-10-12 13:31 | disposition home or self-care (01) ==
LOC: OR 09:49 → AC 09:49
PROVIDERS: Admitting Provider Orthopaedic Surgery; Family Provider Internal Medicine; PCP Internal Medicine; Referring Provider Orthopaedic Surgery; Visit Provider Orthopaedic Surgery
PROC: (CPT 27130; principal; 2020-10-11 07:45)
DX: M16.12 Unilateral primary osteoarthritis, left hip (principal); I10 Essential (primary) hypertension; E11.9 Type 2 diabetes mellitus without complications; N18.9 Chronic kidney disease, unspecified; Z79.84 Long term (current) use of oral hypoglycemic drugs; K21.9 Gastro-esophageal reflux disease without esophagitis; E03.9 Hypothyroidism, unspecified; F41.9 Anxiety disorder, unspecified
CPT/HCPCS: 27130; 36415; 73502; 76000; 82962; 85014; 85018; 97116; 97161; 97530; C1776; G0378; A9270; C9290; J0690; J1100; J2274; J2405; J2704